=== PATIENT | male | born 1970 | race Caucasian/White ===

== ENCOUNTER 2020-06-13 11:04 | Emergency (ER) | payer SELFPAY ==
[~2020-06-13] VITALS: Ht 170.2 cm; Wt 80.0 kg
--- NOTE | 2020-06-13 11:22 | NUR ---
THIS IS A 50 YEAR OLD MALE WHO WAS BIB BY AMBULANCE DUE TO ETOH AND HIGH BS. PT IS HOMELESS AND DOES NOT TAKE MEDICATIONS. PT PLACED ON [employer]PRESENTATIVE, SINUS, SP02 AND CYCLE VS. BS 361, IV STARTED. OBTAINED URINE
[2020-06-13] MEDS ORDERED: SODIUM CHLORIDE 0.9% 1,000ML IVBOLUS ONE (11:30)
[2020-06-13] MEDS ORDERED: THIAMINE 100 MG in SODIUM CHLORIDE 0.9% 50 ML IVPB ONE (11:30)
[2020-06-13] MEDS ORDERED: SODIUM CHLORIDE 0.9% 1,000 ML IV ONE (11:30)
[2020-06-13] MEDS ORDERED: SODIUM CHLORIDE FLUSH 10ML SYR IVF ONE (11:30)
[2020-06-13 11:47] LABS: FIO2 RA %
[2020-06-13 11:50] LABS: BASOPHILS % (AUTO) 1 % (0-1); EOSINOPHILS % (AUTO) 4 % (1-7); LYMPHOCYTES % (AUTO) 44 % (22-44); MEAN CORPUSCULAR HEMOGLOBIN 34.2 pg (27.5-34.5); MEAN CORPUSCULAR HGB CONC 34.5 g/dL (33.2-36.2); MEAN PLATELET VOLUME 7.3 fL (7.4-10.4); MONOCYTES % (AUTO) 10 % (2-9); NEUTROPHILS % (AUTO) 41 % (42-75); PLATELET COUNT 181 x10^3/uL (130-400); RED BLOOD COUNT 4.05 x10^6/uL (4.38-5.82); RED CELL DISTRIBUTION WIDTH 13.1 % (9.4-14.8)
[2020-06-13 11:57] LABS: ALANINE AMINOTRANSFERASE 73 U/L (12-78); ALBUMIN 3.9 g/dL (3.4-5.0); ANION GAP 11 mmol/L (5-15); CALCIUM 8.4 mg/dL (8.5-10.1); CHLORIDE 105 mmol/L (98-107); CREATININE 0.85 mg/dL (0.7-1.3)
[2020-06-13 11:59] LABS: ALKALINE PHOSPHATASE 56 U/L (45-117); BILIRUBIN,TOTAL 0.4 mg/dL (0.2-1.0)
[2020-06-13 12:05] LABS: MD NO
--- NOTE | 2020-06-13 12:22 | NUR ---
TASK RN, COVERING MEAL BREAK. PT SLEEPING, NAD, VSS/UPDATED IN COMPUTER. THIAMINE COMPLETED, NS BOLUS INFUSING. CALL LIGHT WITHIN REACH.
[2020-06-13 12:36] LABS: ACETONE, SERUM Negative (Negative)
--- NOTE | 2020-06-13 12:54 | NUR ---
PT SLEEPING, IV INFUSING WELL.
--- NOTE | 2020-06-13 14:08 | NUR ---
PT SLEEPING RESP EVEN AND UNLABORED.
--- NOTE | 2020-06-13 15:33 | NUR ---
PT SLEEPING ON AND OFF, VERBALIZED NO NEEDS AT THIS TIME.
--- NOTE | 2020-06-13 16:18 | NUR ---
PT REQUEST TO LEAVE, DISCUSSED WITH DR. SOLIS. OK, REFERRAL AND RESOURCES GIVEN FOR ETOH
[2020-06-13 16:30] VITALS: BP 123/50
--- NOTE | 2020-06-13 16:30 | NUR ---
Patient/Caregiver given discharge instructions and they have confirmed that they understand the instructions. Patient ambulatory with steady gait.
== END 2020-06-13 16:39 | disposition home or self-care (01) ==
LOC: ED 16:00
DX: F10.229 Alcohol dependence with intoxication, unspecified (principal); R41.0 Disorientation, unspecified; E11.65 Type 2 diabetes mellitus with hyperglycemia; R94.31 Abnormal electrocardiogram [ECG] [EKG]; Y90.0 Blood alcohol level of less than 20 mg/100 ml
CPT/HCPCS: 71045; 80053; 80320; 82010; 82803; 82962; 83690; 85025; 93005; 96365; 99285; J3411; J7030; 96374; G0480

== ENCOUNTER 2020-11-01 14:02 | Emergency (ER) | payer MEDICAID ==
[~2020-11-01] VITALS: Ht 172.7 cm; Wt 76.3 kg
[2020-11-01 14:09] VITALS: BP 119/92
== END 2020-11-01 14:42 | disposition left against medical advice (07) ==
LOC: ED 14:36
DX: F10.129 Alcohol abuse with intoxication, unspecified (principal); Y90.0 Blood alcohol level of less than 20 mg/100 ml
CPT/HCPCS: 99281